=== PATIENT | male | born 1975 | race American Indian/Alaskan Native ===

== ENCOUNTER 2017-10-10 05:47 | Emergency (ER) | payer SELFPAY ==
[2017-10-10] MEDS ORDERED: BENADRYL IM ONE (06:20)
[2017-10-10] MEDS ORDERED: ERYTHROMYCIN OPHTH OINT OU ONE (07:58)
[2017-10-10] MEDS ORDERED: CLEOCIN PO ONE (07:59)
[2017-10-10] MEDS ORDERED: MOTRIN PO ONE (08:00)
--- NOTE | 2017-10-10 08:07 | Emergency Department Report ---
ED Eye Problem HPI - General Chief complaint: Eye Problems Stated complaint: SWOLLEN EYES Time Seen by Provider: 10/10/17 07:29 Source: patient Mode of arrival: Stretcher Limitations: No Limitations - History of Present Illness Initial comments: 42M PMH DMT2, Eczema p/w c/o 1 weeks of bilateral eye discharge and eye irritation. Patient is awake alert and oriented 3. Visible bilateral eye discharge and conjunctival inflammation. Patient denies any trauma to eyes. Started in right eye and then once the left eye as per patient. Denies any foreign bodies in eyes. Denies contact lens use. chief complaint: eye redness Onset/Timin -: week(s) Location: both eyes If Injury: none Severity: moderate If Pain, Quality: burning Consistency: constant - Related Data Previous Rx's Medication Instructions Recorded Last Taken Type Clindamycin [Clindamycin CAP] 300 mg PO Q6H #28 capsule 10/10/17 Unknown Rx Ibuprofen [Motrin] 600 mg PO Q8H PRN #30 tablet 10/10/17 Unknown Rx Polymyxin B Sulf/Trimethoprim 1 drop OP Q3H #1 drops 10/10/17 Unknown Rx [Polytrim Eye Drops] Allergies Allergy/AdvReac Type Severity Reaction Status Date / Time No Known Allergies Allergy Verified 10/10/17 08:01 ED Review of Systems ROS: Stated complaint: SWOLLEN EYES Other details as noted in HPI ED Past Medical Hx - Past Medical History Hx Diabetes: Yes Additional medical history: Eczema - Surgical History Past Surgical History?: No - Social History Smoking Status: Current Some Day Smoker Substance Use Type: None - Medications Home Medications: Home Medications Medication Instructions Recorded Confirmed Last Taken Type Clindamycin [Clindamycin CAP] 300 mg PO Q6H #28 capsule 10/10/17 Unknown Rx Ibuprofen [Motrin] 600 mg PO Q8H PRN #30 tablet 10/10/17 Unknown Rx Polymyxin B Sulf/Trimethoprim 1 drop OP Q3H #1 drops 10/10/17 Unknown Rx [Polytrim Eye Drops] ED Physical Exam - General Limitations: No Limitations General appearance: alert, in no apparent distress - Head Head exam: Present: atraumatic, normocephalic - Eye Eye exam: Present: periorbital swelling - Expanded Eye Exam Expanded Eyelids: Erythema: Bilateral Pupils: Regular, Round: Bilateral, Reactive: Bilateral Sclera/Conjunctival: Injection: Bilateral Visual acuity (R) = 20/: 40 Visual acuity (L) = 20/: 40 With correction: No IOP (R) in mmH IOP (L) in mmH IOP measured with: Tonopen - ENT ENT exam: Present: normal exam, mucous membranes moist - Neck Neck exam: Present: normal inspection - Respiratory Respiratory exam: Present: normal lung sounds bilaterally. Absent: respiratory distress - Cardiovascular Cardiovascular Exam: Present: regular rate, normal rhythm. Absent: systolic murmur, diastolic murmur, rubs, gallop - GI/Abdominal GI/Abdominal exam: Present: soft, normal bowel sounds - Rectal Rectal exam: Present: deferred - Extremities Exam Extremities exam: Present: normal inspection - Back Exam Back exam: Present: normal inspection - Neurological Exam Neurological exam: Present: alert, oriented X3 - Psychiatric Psychiatric exam: Present: normal affect, normal mood - Skin Skin exam: Present: warm, dry, intact, normal color. Absent: rash ED Course Vital Signs 10/10/17 06:06 Temperature 97.5 F L Pulse Rate 84 Respiratory 16 Rate Blood Pressure 115/76 O2 Sat by Pulse 100 Oximetry ED Medical Decision Making - Medical Decision Making A/P: Bilateral conjunctivitis/blepharitis 1-no clinical signs of periorbital or post-septal cellulitis on clinical exam. Extraocular movements are intact and visual acuity is intact. Patient does have some mucopurulent discharge from both eyes. No exophthalmos. Motrin when necessary, warm compresses 2-Polytrim drops 3-pt provided with initial erythromycin ointment. Follow up with primary care and ophthalmology 4- patient's overall visual acuity intact. 20/ 40 bilaterally. I advised patient to return to the ED if he has worsening swelling around his eyes pain with range of motion of his eyeballs or any fevers or chills. Patient agreed to these parameters. Critical care attestation.: If time is entered above; I have spent that time in minutes in the direct care of this critically ill patient, excluding procedure time. ED Disposition Clinical Impression: Blepharitis of both eyes Qualifiers: Blepharitis type: unspecified type Eyelid: both upper and lower Qualified Code( s): H01.001 - Unspecified blepharitis right upper eyelid; H01.002 - Unspecified blepharitis right lower eyelid; H01.002 - Unspecified blepharitis right lower eyelid; H01.004 - Unspecified blepharitis left upper eyelid; H01.004 - Unspecified blepharitis left upper eyelid; H01.005 - Unspecified blepharitis left lower eyelid; H01.005 - Unspecified blepharitis left lower eyelid Conjunctivitis Qualifiers: Conjunctivitis type: acute Acute conjunctivitis type: bacterial Laterality: bilateral Qualified Code(s): H10.33 - Unspecified acute conjunctivitis, bilateral Disposition: TO HOME OR SELFCARE Is pt being admited?: No Does the pt Need Aspirin: No Condition: Stable Instructions: Conjunctivitis (ED), Blepharitis (ED) Prescriptions: Clindamycin [Clindamycin CAP] 300 mg PO Q6H #28 capsule Ibuprofen [Motrin] 600 mg PO Q8H PRN #30 tablet PRN Reason: Pain Polymyxin B Sulf/Trimethoprim [Polytrim Eye Drops] 1 drop OP Q3H #1 drops Referrals: CHANDLER KEITA MD [Staff Physician] - 3-5 Days [facility] [Outside] - 3-5 Days Forms: Work/School Release Form(ED) Time of Disposition: 08:11
[2017-10-10 10:11] VITALS: BP 142/70
== END 2017-10-10 10:10 | disposition home or self-care (01) ==
LOC: ED 05:47
DX: H01.001 Unspecified blepharitis right upper eyelid (principal); H01.002 Unspecified blepharitis right lower eyelid; H01.004 Unspecified blepharitis left upper eyelid; H01.005 Unspecified blepharitis left lower eyelid; H10.33 Unspecified acute conjunctivitis, bilateral; E11.9 Type 2 diabetes mellitus without complications; F17.200 Nicotine dependence, unspecified, uncomplicated
CPT/HCPCS: 82962; 96372; 99283; J1200